=== PATIENT | female | born 1995 | race Two or more races ===

== ENCOUNTER 2022-12-05 22:55 | Emergency (ER) | payer MEDICAID, OTHER, SELFPAY ==
[2022-12-05 23:04] VITALS: BP 140/89; PULSE 57; RESP 18; TEMP 36.8; O2SAT 99; BMI 29.4
--- NOTE | 2022-12-06 00:49 | ED.GENADULT ---
HPI - General Adult General Chief complaint: Skin/Abscess/Foreign Body Stated complaint: ?Poison Kailey/ Legs Time Seen by Provider: 12/06/22 00:34 Source: patient, RN notes reviewed, old records reviewed and spanish interpreter Mode of arrival: ambulatory Limitations: no limitations History of Present Illness HPI narrative: 27-year-old female presents for evaluation of rash to her legs. She states the rash initially only on her left leg but spread to the right leg and has been there for 1 week She reports that she was swimming in a river and walk through a bunch of these and wishes to get to it just before the symptom onset The rash is very itchy and she has been scratching She has been using calamine lotion with some improvement in her symptoms Denies any fevers or chills Related Data Previous Rx's Medication Instructions Recorded hydrocortisone 2.5 % topical cream 1 appl topical BID 5 days #30 grams 12/06/22 prednisone 10 mg tablets in a dose 10 mg PO DIRECTED #48 ea 12/06/22 pack Allergies Allergy/AdvReac Type Severity Reaction Status Date / Time No Known Allergies Allergy Verified 12/05/22 23:10 Review of Systems Constitutional: Constitutional: Denies chills, Denies fatigue and Denies headache(s) ENT: Denies headache(s) Cardiovascular: Cardiovascular: Denies chest pain and Denies dyspnea Respiratory: Respiratory: Denies cough and Denies dyspnea Gastrointestinal: Gastrointestinal: Denies abdominal pain Integumentary/Breasts: Skin/Breast: Reports rash Neurologic: Denies headache(s) Endocrine: Endocrine: Denies fatigue PMFSH Social History Social History Advance Directives: No Advance Directives Information Provided: Yes Physical Exam ED Vital Signs: Vital Signs - 24 hr 12/05/22 23:04 Temperature 98.2 F Pulse Rate 57 Respiratory Rate 18 Blood Pressure 140/89 H Pulse Oximetry 99 Oxygen Delivery Method Room Air BMI result Body Mass Index 29.4 Const General: healthy appearing, comfortable, no acute distress, alert and awake Nutritional Appearance: well nourished Orientation/consciousness: patient oriented x3 HENMT Head: Yes normocephalic and Yes atraumatic Eyes Eyelids: Yes eyelids normal Conjunctivae: conjunctivae normal Sclerae: sclerae normal Corneas: corneas normal Pupils: Equal, round and reactive pupils present EOM: EOMs intact bilaterally Neck Neck: Yes full ROM Resp Effort & Inspection: normal respiratory effort, able to speak in complete sentences and not labored Skin Other: Scattered macular papular rash to the bilateral lower extremities it does not go above the thighs. The rash is worse on the left lateral thigh and right nunez. No significant erythema, no open wounds or pustules. Rash is covered in pink dried, calamine lotion. General skin exam: elasticity normal Neuro General: patient oriented x3 Cranial nerves: Yes Equal, round and reactive pupils present and Yes Bilaterally intact EOM present Cognition (Neuro): normal cognition Extrem Other: Moving all extremities well without any obvious deformities Medical Decision Making Medical Decision Making MDM Narrative: 27-year-old female presents for evaluation of rash to lower extremities. Her history and exam is consistent with contact dermatitis, will treat with prednisone and hydrocortisone Differential Diagnosis Acute rash Contact dermatitis Poison kailey Dermatitis Bullous impetigo Discharge Plan Discharge Clinical Impression: Contact dermatitis Patient Disposition: Home, Self-Care Instructions: Contact Dermatitis (ED) Additional Instructions: Your rashes consistent with poison kailey Use the hydrocortisone twice daily for 5 days Use the prednisone as prescribed Prescriptions: New prednisone 10 mg tablets,dose pack 10 mg PO DIRECTED Qty: 48 0RF Rx Instructions: see taper instructions hydrocortisone 2.5 % cream 1 appl topical BID 5 Days Qty: 30 0RF
== END 2022-12-06 01:13 | disposition home or self-care (01) ==
PROVIDERS: Emergency Provider Emergency Medicine
DX: L23.7 Allergic contact dermatitis due to plants, except food (principal)
CPT/HCPCS: 99282; 99283